=== PATIENT | female | born 1955 | race Caucasian/White ===

== ENCOUNTER 2017-02-08 16:04 | Outpatient (CLI) | payer BC ==
--- NOTE | 2017-02-10 18:15 | Mammography Report ---
DIGITAL BILATERAL SCREENING MAMMOGRAM: 02/08/2017 There are no comparisons. TECHNIQUE: Routine CC and MLO projections were obtained of the breasts. FINDINGS: Scattered fibroglandular tissue is present within the breasts. There are no dominant mass es, suspicious microcalcifications, or secondary signs of malignancy. ASSESSMENT: NO MAMMOGRAPHIC EVIDENCE OF MALIGNANCY. RECOMMENDATION: Screening mammography is recommended annually. BIRADS category 1 - negative. STANDARD QUALIFYING STATEMENTS 1. This examination was reviewed with the aid of Computed-Aided Detection (CAD). 2. A negative or benign imaging report should not delay biopsy if clinically suspicious findings are present. Consider surgical consultation if warranted. More than 5% of cancers are not identified b y imaging. 3. Dense breasts may obscure an underlying neoplasm. JOB #: [id number] EXT JOB #:[id number]
== END 2017-02-08 16:05 | disposition home or self-care (01) ==
LOC: DI.S 16:04
PROVIDERS: ATTEND Nurse Practitioner Family
DX: Z12.31 Encounter for screening mammogram for malignant neoplasm of breast (principal)
CPT/HCPCS: 77067

== ENCOUNTER 2017-04-28 09:47 | Outpatient (CLI) | payer BC ==
[2017-04-28 17:52] LABS: BASOPHILS # (AUTO) 0.1 10^3/uL (0.0-0.1); BASOPHILS % (AUTO) 0.8 %; EOSINOPHILS # (AUTO) 0.1 10^3/uL (0.0-0.7); EOSINOPHILS % (AUTO) 1.6 %; HGB - HEMOGLOBIN 15.1 g/dL (12.0-16.0); LYMPHOCYTES # (AUTO) 3.6 10^3/uL (1.5-3.5); LYMPHOCYTES % (AUTO) 39.6 %; MEAN CORPUSCULAR HGB CONC 32.8 g/dL (32.0-36.0); MEAN CORPUSCULAR VOLUME 94.4 fL (81.0-99.0); MONOCYTES # (AUTO) 0.7 10^3/uL (0.0-1.0); MONOCYTES % (AUTO) 7.7 %; NEUTROPHILS # (AUTO) 4.5 10^3/uL (1.5-6.6); NEUTROPHILS % (AUTO) 50.3 %; PLT - PLATELET COUNT 208 10^3/uL (130-450); RED BLOOD COUNT 4.87 10^6/uL (4.20-5.40); RED CELL DISTRIBUTION WIDTH 14.4 % (12.0-15.0)
[2017-04-28 18:27] LABS: ALBUMIN 3.9 g/dL (3.2-5.5); ALBUMIN/GLOBULIN RATIO 1.3 (1.0-2.2); ALKALINE PHOSPHATASE 58 IU/L (42-121); ALT ALANINE AMINOTRANSFERASE 16 IU/L (10-60); AST ASPARTATE AMINOTRANSFERASE 17 IU/L (10-42); BILIRUBIN,TOTAL 0.4 mg/dL (0.2-1.0); BUN - BLOOD UREA NITROGEN 21 mg/dL (6-20); CALCIUM 8.6 mg/dL (8.5-10.3); CARBON DIOXIDE - CO2 29 mmol/L (21-32); CHLORIDE 108 mmol/L (101-111); CHOL/HDL RATIO 4.1 (<4.4); CHOLESTEROL 270 mg/dL; CREATININE 0.8 mg/dL (0.4-1.0); GFR - MDRD 73 (>89); GLUCOSE 94 mg/dL (70-100); HDL CHOLESTEROL 66 mg/dL; LDL CHOLESTEROL,CALCULATED 183 mg/dL; LDL/HDL RATIO 2.8 (<4.4); SODIUM 138 mmol/L (135-145); TOTAL PROTEIN 6.8 g/dL (6.7-8.2); VLDL CHOLESTEROL 21 mg/dL
== END 2017-04-28 09:48 | disposition home or self-care (01) ==
LOC: LAB.F 09:47
PROVIDERS: ATTEND Nurse Practitioner Family
DX: F41.9 Anxiety disorder, unspecified (principal); R53.83 Other fatigue
CPT/HCPCS: 36415; 80053; 80061; 84443; 85025

== ENCOUNTER 2018-02-09 12:53 | Outpatient (CLI) | payer BC ==
--- NOTE | 2018-02-10 10:43 | Mammography Report ---
Reason: SCREENING MAMMO Procedure Date: 02/09/2018 Accession Number: [id number] / [id number] Procedure: RACHANA - Screening Mammo Dig Bilat CPT Code: FULL RESULT: EXAM: Screening Mammo Dig Bilat DATE: 02/09/2018 1:27 PM CLINICAL HISTORY: Routine screening TECHNIQUE: Bilateral CC and MLO views were obtained. COMPARISON: 02/08/2017 FINDINGS: There are scattered fibroglandular densities. No significant interval change. No suspicious masses, clustered microcalcifications, or regions of architectural distortion are identified. IMPRESSION: Negative examination RECOMMENDATION: Routine annual screening unless otherwise clinically indicated. BIRADS CATEGORY 1: Negative STANDARD QUALIFYING STATEMENTS: 1. This examination was reviewed with the aid of Computer-Aided Detection (CAD). 2. A negative or benign imaging report should not delay biopsy if clinically suspicious findings are present. Consider surgical consultation if warrented. More than 5% of cancers are not identified by imaging. 3. Dense breasts may obscure an underlying neoplasm.
== END 2018-02-09 12:54 | disposition home or self-care (01) ==
LOC: DI 12:53
DX: Z12.31 Encounter for screening mammogram for malignant neoplasm of breast (principal)
CPT/HCPCS: 77067

== ENCOUNTER 2019-02-10 11:22 | Outpatient (CLI) | payer BC ==
--- NOTE | 2019-02-10 12:25 | Mammography Report ---
Reason: SCREENING MAMMO Procedure Date: 02/10/2019 Accession Number: [id number] / [id number] Procedure: MGS - Screening Mammo Dig Bilat CPT Code: FULL RESULT: EXAM: Screening Mammo Dig Bilat DATE: 02/10/2019 11:44 AM CLINICAL HISTORY: Routine screening TECHNIQUE: (B) - Bilateral CC and MLO views were obtained. COMPARISON: 02/09/2018, 02/08/2017 PARENCHYMAL PATTERN: (A) - The breasts demonstrate scattered fibroglandular densities bilaterally. FINDINGS: No significant interval change. There are no suspicious masses, calcifications, or areas of distortion. IMPRESSION: Negative examination. BI-RADS category 1. RECOMMENDATION: (ANNUAL) - Recommend routine annual screening mammography. BI-RADS CATEGORY: (1) - Negative. STANDARD QUALIFYING STATEMENTS: 1. This examination was not reviewed with the aid of Computer-Aided Detection (CAD). 2. A negative or benign imaging report should not preclude biopsy if clinically suspicious findings are present. 3. Dense breasts may obscure an underlying neoplasm. 4. This examination was reviewed without the aid of 3D breast imaging (tomosynthesis).
== END 2019-02-10 11:23 | disposition home or self-care (01) ==
LOC: DI.S 11:22
DX: Z12.31 Encounter for screening mammogram for malignant neoplasm of breast (principal)
CPT/HCPCS: 77067

== ENCOUNTER 2021-02-09 14:49 | Outpatient (CLI) | payer MEDICARE, BC ==
--- NOTE | 2021-02-11 08:03 | Mammography Report ---
BILATERAL DIGITAL SCREENING MAMMOGRAM 3D/2D: 02/09/2021 CLINICAL: Routine screening. Comparison is made to exams dated: 02/10/2019 mammogram, 02/09/2018 mammogram, and 02/08/2017 mammog [facility]. There are scattered fibroglandular elements in both breasts. No significant masses, calcifications, or other findings are seen in either breast. There has been no significant interval change. IMPRESSION: NEGATIVE There is no mammographic evidence of malignancy. A 1 year screening mammogram is recommended. This exam was interpreted at Station ID: [id number]. NOTE: For mammograms, a report in lay terms will be sent to the patient. Approximately 15% of breast malignancies will not be visualized mammographically. In the management of a palpable breast mass, a negative mammogram must not discourage biopsy of a clinically suspicious lesion. Electronically Signed By: Sadie karimi/[email or web address]:02/10/2021 11:13:10 ACR BI-RADS Category 1: Negative 3341F PARENCHYMAL PATTERN: (A) - The breast(s) demonstrate(s) scattered fibroglandular densities. BI-RADS CATEGORY: (1) - 1 RECOMMENDATION: (ANNUAL) - Recommend routine annual screening mammography. [id number] 1 year screening LATERALITY: (B)
== END 2021-02-09 14:50 | disposition home or self-care (01) ==
LOC: DI.S 14:49
DX: Z12.31 Encounter for screening mammogram for malignant neoplasm of breast (principal)

== ENCOUNTER 2021-03-02 14:52 | Emergency (ER) | payer MEDICARE, OTHER ==
[2021-03-02 15:02] VITALS: BP 158/75
--- NOTE | 2021-03-02 15:58 | ED Physician Documentation ---
PD HPI HEENT - Stated complaint Stated Complaint: HEADACHE/EYE PX - Chief complaint Chief Complaint: Neuro - History obtained from History obtained from: Patient - Additional information Additional information: Patient comes emergency department chief complaint of pain in left maxillary area, as well as left side of nasal bridge and superior orbital rim forehead area for about the last 2 weeks. She states that she did have a brief episode of visual phenomena about 16 days ago which consisted of a brightly flashing Blind spot with various colors. At that time, she was able to consult with her tape control skin or spar mill operator, who felt that this was a migraine of ocular variance. Patient states that this only lasted about 20 minutes and that she was fine for the next few days until she got her Booster shot for Covid. She states that she developed an increasingly painful left eye ache that progressed into maxillary pain and pain in the nasal bridge as well as in the bone above her eye. She states that she did not have any visual changes, but has noticed that she has had an excessive amount of mucus drainage from the eye itself, as well as puffiness of her upper and lower eyelid. She states at night, she gets copious amounts of drainage from her left sinus, which she is able to blow out in the morning. She states the sinus only drains at night. She has had some chills but has not measured a temperature at home. No neurologic symptoms. She has not been ill in any other way. Patient does not use contacts or glasses. She has no history of glaucoma. Patient was sent here from urgent care for possible CT scan of the head. No other complaints at this time. Review of Systems Ten Systems: 10 systems reviewed and negative Constitutional: reports: Chills Eyes: reports: Discharge, Irritation Ears: reports: Reviewed and negative Nose: reports: Reviewed and negative Throat: reports: Reviewed and negative Cardiac: reports: Reviewed and negative Respiratory: reports: Reviewed and negative GI: reports: Reviewed and negative : reports: Reviewed and negative Skin: reports: Reviewed and negative Musculoskeletal: reports: Reviewed and negative Neurologic: reports: Headache Psychiatric: reports: Reviewed and negative Endocrine: reports: Reviewed and negative Immunocompromised: reports: Reviewed and negative PD PAST MEDICAL HISTORY - Past Medical History Cardiovascular: None Respiratory: Asthma Endocrine/Autoimmune: None GI: None ELECTRICAL APPLIANCE MECHANIC: None : Kidney stones HEENT: None Psych: Depression Musculoskeletal: Osteoarthritis, Chronic back pain Derm: Other - Past Surgical History Past Surgical History: Yes General: Appendectomy /ELECTRICAL APPLIANCE MECHANIC: Hysterectomy HEENT: Tonsil/Adenoidectomy - Present Medications Home Medications: Ambulatory Orders Medication Instructions Recorded Confirmed Aspirin [Aspir 81] 81 mg ORAL DAILY 12/28/14 12/28/14 Citalopram [CeleXA] 20 mg ORAL DAILY 12/28/14 12/28/14 Folic Acid 0 mg ORAL DAILY 12/28/14 12/28/14 Meloxicam 0 mg ORAL DAILY 12/28/14 12/28/14 raNITIdine HCl [Zantac] 0 mg ORAL DAILY 12/28/14 12/28/14 Doxycycline Monohydrate 100 mg PO BID #14 tab 03/02/21 Gentamicin 0.3% Ophth Drops 1 drops OPTH BID #5 ml 03/02/21 [Garamycin] - Allergies Allergies/Adverse Reactions: Allergies Allergy/AdvReac Type Severity Reaction Status Date / Time morphine Allergy Itching Verified 03/02/21 15:03 Penicillins Allergy Anaphylaxis Verified 03/02/21 15:03 Tetanus Vaccines and Toxoid Allergy Edema Verified 03/02/21 15:03 [Tetanus Vaccines & Toxoid] - Social History Does the pt smoke?: No Smoking Status: Never smoker Does the pt drink ETOH?: Yes Does the pt have substance abuse?: No - Immunizations Immunizations are current?: No PD ED PE NORMAL - Vitals Vital signs reviewed: Yes - General General: Alert and oriented X 3, No acute distress, Well developed/nourished - HEENT HEENT: Atraumatic, PERRL, EOMI, Moist mucous membranes, Other (Mild left conjunctival injection. No obvious drainage. Mild edema of left upper and lower eyelids. Moderate tenderness over left maxillary sinus extending up along the patient's left nasal bridge onto the superior orbital rim and a couple of centimeters superior to that over the bone. No edema o) - Neck Neck: Supple, no meningeal sign, No bony TTP - Cardiac Cardiac: RRR, No murmur, Strong equal pulses - Respiratory Respiratory: No respiratory distress, Clear bilaterally - Abdomen Abdomen: Soft, Non tender, Non distended - Derm Derm: Normal color, Warm and dry, No rash - Extremities Extremities: No deformity - Neuro Neuro: Alert and oriented X 3, dye and chemical coordinator 2-12 intact, Normal speech - Psych Psych: Normal mood, Normal affect Results - Vitals Vitals: Vital Signs - 24 hr 03/02/21 14:56 Temperature 36.5 C Heart Rate 83 Respiratory 16 Rate Blood Pressure 158/75 H O2 Saturation 97 Oxygen O2 Source Room air PD MEDICAL DECISION MAKING - ED course Complexity details: considered differential, d/w patient ED course: I discussed with the patient that I do not find evidence of a need for CT scan. She has had the pain in her left sinuses and I for the last 12 days without any sort of progression of neurologic symptoms or infectious symptoms otherwise. The patient does not have any visual compromise or severe injection to indicate a prior high probability of glaucoma. I feel it is unlikely she has an intracranial process as an explanation for her symptoms. Patient most likely has a rhinosinusitis, with some degree of conjunctivitis. We will treat her for this, and antibiotic drops have been prescribed. The patient is advised that if she continues to have the symptoms for more than another couple weeks, she should follow-up in primary care to discuss ENT referral. Discussed the usual indications for return. Departure - Departure Disposition: 01 Home, Self Care Clinical Impression: Acute rhinosinusitis Condition: Stable Instructions: ED Sinusitis Abx Tx Follow-Up: Nickolas Garcia MD [Credentialed Staff Provider] - Prescriptions: Doxycycline Monohydrate 100 mg PO BID #14 tab Gentamicin 0.3% Ophth Drops [Garamycin] 1 drops OPTH BID #5 ml Comments: Your prescriptions have been electronically transmitted to [facility] in [place].
== END 2021-03-02 16:07 | disposition home or self-care (01) ==
LOC: ED 14:52
DX: J01.90 Acute sinusitis, unspecified (principal); H10.9 Unspecified conjunctivitis
CPT/HCPCS: 99282; 99284

== ENCOUNTER 2021-04-05 12:06 | Emergency (ER) | payer MEDICARE, OTHER ==
--- NOTE | 2021-04-05 12:46 | ED Physician Documentation ---
History of Present Illness - Stated complaint Stated Complaint: DIZZINESS - Chief complaint Chief Complaint: Neuro - Additonal information Additional information: 65-year-old female is referred to the emergency department from a local walk-in clinic for evaluation of progressive vertigo and dizziness that began on Wednesday, 01 April. She reports that initially when she woke up in bed she opened her eyes and found the room spinning. This has been a constant complaint especially when bending over over the last week. However today she began to feel off balance and stated that she is walking like a drunk person though she has had no alcohol. 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 She reports that subsequent imaging echocardiogram and EKG did not reveal an obvious reason or cause and she was discharged from the hospital. She is not anticoagulated, takes no aspirin or Plavix. She states that 9 years ago they had concerns that she may have been having a vertebral artery dissection or vertebral artery stroke. pt takes no asa or plavix. not anticoagulated Meds: none Review of Systems Constitutional: denies: Fever, Chills Eyes: reports: Other (Denies double vision). denies: Loss of vision, Photophobia Ears: denies: Loss of hearing, Ear pain, Drainage/discharge, Tinnitus/ringing Nose: reports: Reviewed and negative Throat: reports: Reviewed and negative Cardiac: reports: Reviewed and negative Respiratory: reports: Reviewed and negative GI: reports: Nausea. denies: Vomiting : denies: Dysuria, Frequency, Hesitancy Skin: denies: Rash, Lesions Musculoskeletal: reports: Neck pain. denies: Back pain Neurologic: reports: Other (Off balance and dizzy). denies: Generalized weaknes s, Focal weakness, Numbness, Difficulty speaking, Near syncope, Headache, Head injury PD PAST MEDICAL HISTORY - Past Medical History Cardiovascular: None Respiratory: Asthma Neuro: Migraines Endocrine/Autoimmune: None GI: None TELECOMMUNICATIONS ADMINISTRATOR: None : Kidney stones HEENT: None Psych: Depression Musculoskeletal: Osteoarthritis, Chronic back pain Derm: Other - Past Surgical History Past Surgical History: Yes General: Appendectomy /TELECOMMUNICATIONS ADMINISTRATOR: Hysterectomy HEENT: Tonsil/Adenoidectomy - Present Medications Home Medications: Ambulatory Orders Medication Instructions Recorded Confirmed Aspirin [Aspir 81] 81 mg ORAL DAILY 12/28/14 12/28/14 Citalopram [CeleXA] 20 mg ORAL DAILY 12/28/14 12/28/14 Folic Acid 0 mg ORAL DAILY 12/28/14 12/28/14 Meloxicam 0 mg ORAL DAILY 12/28/14 12/28/14 raNITIdine HCl [Zantac] 0 mg ORAL DAILY 12/28/14 12/28/14 Doxycycline Monohydrate 100 mg PO BID #14 tab 03/02/21 Gentamicin 0.3% Ophth Drops 1 drops OPTH BID #5 ml 03/02/21 [Garamycin] - Allergies Allergies/Adverse Reactions: Allergies Allergy/AdvReac Type Severity Reaction Status Date / Time morphine Allergy Itching Verified 04/05/21 12:16 Penicillins Allergy Anaphylaxis Verified 04/05/21 12:16 Tetanus Vaccines and Toxoid Allergy Edema Verified 04/05/21 12:16 [Tetanus Vaccines & Toxoid] - Social History Does the pt smoke?: No Smoking Status: Never smoker Does the pt drink ETOH?: Yes Does the pt have substance abuse?: No - Immunizations Immunizations are current?: No PD ED PE EXPANDED - General General: Alert, No acute distress, Well developed/nourished - Cardiac Cardiac: Regular Rate, Radial strong equal, Pedal strong equal, Cap refill < 2 sec. No: Murmur Present - Respiratory Respiratory: Clear to ausultation zachery. No: Distress, Labored - Abdomen Abdomen: Normal Bowel sounds. No: Tender to palpation - Derm Derm: Normal color, Warm and dry. No: Rash - Extremities Extremities: Normal. No: Deformity, Tenderness - Neuro Neuro: Alert and Oriented X 3, CNII-XII intact, Normal finger nose, Normal speech, Other (HINTS: + loss of fixation of left eye HITS; No nystagmus, Test of skew negative). No: Normal gait (Pt appears to skew to the right somwehat when walking. Can not perform heel/toe. Feels very dizzy and off balance with ambulation. Negative Romberg) Results - Vitals Vitals: Vital Signs - 24 hr 04/05/21 04/05/21 04/05/21 12:13 12:26 12:30 Temperature 36.8 C Heart Rate 86 71 75 Respiratory 18 17 18 Rate Blood Pressure 177/93 H 181/89 H 172/97 H O2 Saturation 99 99 100 04/05/21 04/05/21 14:00 16:00 Temperature Heart Rate 78 74 Respiratory 18 16 Rate Blood Pressure 164/82 H 158/78 H O2 Saturation 96 96 Oxygen O2 Source Room air - EKG (time done) 1250 Rate: Rate (enter#) (73) Rhythm: NSR [place]: Normal Intervals: Normal [place] QRS: Normal Ischemia: Normal ST segments Compare to prior EKG: Old EKG unavailable Computer interpretation: Agree with computer - Labs Labs: Laboratory Tests 04/05/21 04/05/21 04/05/21 12:41 12:41 12:41 WBC 11.9 H RBC 5.30 Hgb 16.6 H Hct 49.8 H MCV 94.0 MCH 31.3 H MCHC 33.3 RDW 13.7 Plt Count 238 MPV 10.9 H Neut # (Auto) 8.3 H Lymph # (Auto) 2.8 Casey # (Auto) 0.8 Eos # (Auto) 0.0 Baso # (Auto) 0.1 Absolute Nucleated RBC 0.00 Nucleated RBC % 0.0 PT INR Sodium 139 Potassium 4.0 Chloride 103 Carbon Dioxide 24 Anion Gap 12.0 BUN 15 Creatinine 0.8 Estimated GFR (MDRD) 72 L Glucose 103 H Calcium 9.5 Total Bilirubin 1.1 H AST 18 ALT 21 Alkaline Phosphatase 74 Troponin I High Sens 3.9 Total Protein 7.7 Albumin 4.2 Globulin 3.5 Albumin/Globulin Ratio 1.2 Lipase 30 TSH Urine Color Urine Clarity Urine pH Ur Specific [place] Urine Protein Urine Glucose (UA) Urine Ketones Urine Occult Blood Urine Nitrite Urine Bilirubin Urine Urobilinogen Ur Leukocyte Esterase Urine RBC Urine WBC Ur Squamous Epith Cells Urine Bacteria Ur Microscopic Review Urine Culture Comments 04/05/21 04/05/21 04/05/21 12:41 12:50 14:20 WBC RBC Hgb Hct MCV MCH MCHC RDW Plt Count MPV Neut # (Auto) Lymph # (Auto) Casey # (Auto) Eos # (Auto) Baso # (Auto) Absolute Nucleated RBC Nucleated RBC % PT 11.5 INR 1.0 Sodium Potassium Chloride Carbon Dioxide Anion Gap BUN Creatinine Estimated GFR (MDRD) Glucose Calcium Total Bilirubin AST ALT Alkaline Phosphatase Troponin I High Sens Total Protein Albumin Globulin Albumin/Globulin Ratio Lipase TSH 1.30 Urine Color YELLOW Urine Clarity HAZY Urine pH 5.0 Ur Specific [place] 1.010 Urine Protein NEGATIVE Urine Glucose (UA) NEGATIVE Urine Ketones NEGATIVE Urine Occult Blood SMALL H Urine Nitrite NEGATIVE Urine Bilirubin NEGATIVE Urine Urobilinogen 0.2 (NORMAL) Ur Leukocyte Esterase NEGATIVE Urine RBC 0-5 Urine WBC 0-3 Ur Squamous Epith Cells NONE SEEN Urine Bacteria None Seen Ur Microscopic Review INDICATED Urine Culture Comments NOT INDICATED - Rads (name of study) cxr Radiology: Final report received (no actue cardiopulmonary process) CTA head Radiology: Final report received (Atherosclerotic calcifications of the intracranial internal carotid arteries. otherwise normal CTA of the head) CTA neck Radiology: Final report received (Left vertebral artery has a severe stenosis at the origin but is patent throughout the remainder of its course. Atherosclerotic calcifications of the carotid bulbs with no significant stenos is. Tortuosity of the cervical portions of the ICA. Otherwise normal CTA of the carotid and vertebral shai) PD MEDICAL DECISION MAKING - ED course Complexity details: reviewed results, re-evaluated patient, considered differential, d/w internal control consultant (Svetlana (neurologist at [facility])) ED course: 65-year-old female presents the emergency department for evaluation of dizziness and feeling off balance. Symptoms began on 01 April and have seem to be mostly positional especially when laying supine or bending over. However this morning she felt like she was walking drunk. On exam her hints exam did show a corrective saccade with head impulse/thrust test. Her test of skew And nystagmography test were negative. This would indicate that the patient may have peripheral vertigo. However she indicated to this provider that in 2011 she had concerns That she could have had a stroke in 2011 though the work-up completed at the [facility] in [place] was negative. Today on presentation she had no focal neuro deficits and very fluid speech. Her Romberg was negative. Screening labs do not show any acute worrisome abnormalities. CT angio of the head was unremarkable. However the CT angio of the neck showed vertebral artery stenosis at the origin of the vertebral artery. Given the concern of worsening vertigo I did discuss this case with Dr. Alberto who is a neurologist on-call with [facility]. He reports to this provider that vertebral artery stenosis is not uncommon especially in individuals of this age. If patient is able to adequately ambulate he feels that she is stable for discharge home but should be referred to neurology as an outpatient. Reassuringly her right vertebral artery is without significant findings. She should have an outpatient MRI though it does not need to be done emergently within the next few days. He does recommend starting the patient on aspirin if she is not already taking it. Therefore she was loaded with 325 mg of aspirin here and will be advised to take 81 mg daily. I have discussed with the patient her CT imaging findings as well as my discussion with the neurologist. She will attempt to follow-up with her primary care doctor to obtain outpatient MRI. I did observe her ambulating in the hallway and she was relatively safe though she does prefer to hold on to someone therefore she will be dispensed a walker. We discussed that if her symptoms worsen she must return to an ER immediately. Departure - Departure Disposition: Home, Self Care Clinical Impression: Vertebral artery stenosis Qualifiers: Laterality: left Qualified Code(s): I65.02 - Occlusion and stenosis of left vertebral artery Condition: Stable Record reviewed to determine appropriate education?: Yes Instructions: ED Fall Dizziness Weakn Balance Follow-Up: Cj Hills MD [Provider Admit Priv/Credential] - Comments: Jordana and you were seen in the emergency department today because you have had worsening dizziness that began on Wednesday. Your screening labs today did not show any worrisome abnormalities. We did do CT angiogram of your head that was unremarkable for age. However the angiogram of your neck did show stenosis or narrowing at the origin of your left vertebral artery. This was discussed with the on-call neurologist at [facility]. He does recommend that you have an MRI as an outpatient. He would also recommend that you start taking a daily aspirin since you are not already. We are dispensing you a walker to help you stay stable when walking. If however you find that you are having worsening dizziness, any vomiting or falls then you are to return to an emergency department immediately. It is important that you see your primary care provider in follow-up as soon as possible. I have given you the name of Dr. Hernandez who is scheduled to see emergency department patients in follow-up next week. Discharge Date/Time: 04/05/21 16:30
[2021-04-05 13:01] LABS: BASOPHILS # (AUTO) 0.1 10^3/uL (0.0-0.1); BASOPHILS % (AUTO) 0.5 %; EOSINOPHILS % (AUTO) 0.2 %; HCT - HEMATOCRIT 49.8 % (37.0-47.0); HGB - HEMOGLOBIN 16.6 g/dL (12.0-16.0); LYMPHOCYTES # (AUTO) 2.8 10^3/uL (1.5-3.5); LYMPHOCYTES % (AUTO) 23.4 %; MEAN CORPUSCULAR HEMOGLOBIN 31.3 pg (27.0-31.0); MEAN CORPUSCULAR HGB CONC 33.3 g/dL (32.0-36.0); MEAN PLATELET VOLUME 10.9 fL (7.9-10.8); MONOCYTES # (AUTO) 0.8 10^3/uL (0.0-1.0); MONOCYTES % (AUTO) 6.3 %; NEUTROPHILS # (AUTO) 8.3 10^3/uL (1.5-6.6); NEUTROPHILS % (AUTO) 69.2 %; PLT - PLATELET COUNT 238 10^3/uL (130-450); RED CELL DISTRIBUTION WIDTH 13.7 % (12.0-15.0); WHITE BLOOD COUNT 11.9 x10^3/uL (4.8-10.8)
[2021-04-05 13:05] LABS: PT - PROTHROMBIN TIME 11.5 secs (9.9-12.6)
[2021-04-05 13:09] LABS: ALBUMIN 4.2 g/dL (3.2-5.5); ALBUMIN/GLOBULIN RATIO 1.2 (1.0-2.2); BILIRUBIN,TOTAL 1.1 mg/dL (0.2-1.0); CALCIUM 9.5 mg/dL (8.5-10.3); CREATININE 0.8 mg/dL (0.4-1.0); TOTAL PROTEIN 7.7 g/dL (6.7-8.2)
[2021-04-05] MEDS ORDERED: SODIUM CHLORIDE 0.9% 1,000 ML IV STA (13:21)
[2021-04-05] MEDS ORDERED: IOPAMIDOL-300 100 ML VIAL ONE (13:35)
[2021-04-05] MEDS ORDERED: IOPAMIDOL-300 100 ML VIAL IVP ONE (14:00)
[2021-04-05] MEDS ORDERED: MECLIZINE 12.5 MG TABLET PO STA (14:05)
--- NOTE | 2021-04-05 14:18 | XRAY Report ---
PROCEDURE: Chest 1 View X-Ray INDICATIONS: chest pain TECHNIQUE: One view of the chest was acquired. COMPARISON: None FINDINGS: Surgical changes and devices: None. Lungs and pleura: No pleural effusions or pneumothorax. Lungs are clear. Mediastinum: Mediastinal contours appear normal. Heart size is normal. Bones and chest wall: No suspicious bony lesions. Overlying soft tissues appear unremarkable. IMPRESSION: No acute abnormality of the chest. Reviewed by: Jean-Pierre Mcdaniel on 04/05/2021 1:16 PM [facility] Approved by: Jean-Pierre Mcdaniel on 04/05/2021 1:16 PM [facility] Station ID: [id number]
--- NOTE | 2021-04-05 14:36 | CT Report ---
PROCEDURE: ANGIO HEAD W/WO INDICATIONS: vertigo, off balance CONTRAST: IV CONTRAST: Isovue 300 ml: 80 PO CONTRAST: *NO PO CONTRAST TECHNIQUE: Precontrast 4.5 mm thick angled axial sections acquired from the foramen magnum to the vertex. Afte r the administration of intravenous contrast, 1 mm thick sections acquired through the [place] is. Postcontrast 4.5 mm thick sections then re-acquired from the foramen magnum to the vertex. 3-di mensional zclmdwi-nkmlpinxe-hewwhbgvqw (MIP) and/or volume rendering reformats were acquired of the c entral intracranial vasculature. For radiation dose reduction, the following was used: automated ex posure control, adjustment of mA and/or kV according to patient size. COMPARISON: None FINDINGS: Image quality: Excellent. Anterior circulation: The cavernous segments of the intracranial internal carotid arteries demonstrat e atherosclerotic calcifications with no significant stenosis. The flow within the paired anterior ce rebral arteries is normal and symmetric. The flow within the middle cerebral arteries is normal and symmetric. The anterior communicating artery is seen. No aneurysms are seen. Posterior circulation: Visualized portions of the vertebral arteries demonstrate normal caliber, and join to form a normal appearing basilar artery. Flow within the posterior cerebral arteries is norm al and symmetric. No aneurysms are seen. CSF spaces: Ventricles are normal in size and shape. Basal cisterns are patent. No extra-axial flu id collections. Brain: No midline shift. No intracranial bleeds or masses. Maldonado-white matter interface appears int act. Skull and face: Calvarium and facial bones appear intact, without suspicious lesions. Sinuses: Visualized sinuses and mastoids are clear. IMPRESSION: 1. Atherosclerotic calcifications of the intracranial internal carotid arteries.. 2. Otherwise normal CTA of the head. Reviewed by: Jean-Pierre Mcdaniel on 04/05/2021 1:35 PM [place] Approved by: Jean-Pierre Mcdaniel on 04/05/2021 1:35 PM [place] Station ID: [id number]
[2021-04-05 14:45] LABS: BILIRUBIN,URINE NEGATIVE (NEGATIVE); GLUCOSE, URINE (UA) NEGATIVE (NEGATIVE); KETONES,URINE (UA) NEGATIVE (NEGATIVE); LEUKOCYTE ESTERASE, URINE NEGATIVE (NEGATIVE); NITRITE,URINE NEGATIVE (NEGATIVE); OCCULT BLOOD,URINE SMALL (NEGATIVE); PROTEIN,URINE NEGATIVE (NEGATIVE); UROBILINOGEN,URINE 0.2 (NORMAL) E.U./dL (NORMAL)
[2021-04-05 14:49] LABS: CLARITY,URINE HAZY (CLEAR)
--- NOTE | 2021-04-05 14:49 | CT Report ---
PROCEDURE: ANGIO NECK W INDICATIONS: vertigo; off balance CONTRAST: IV CONTRAST: Isovue 300 ml: 80 PO CONTRAST: *NO PO CONTRAST TECHNIQUE: After the administration of intravenous contrast, 1.5 mm axial sections acquired from the aortic arch to the [place]. Coronal 3-D maximum intensity projection (MIP) and/or volume rendering ref ormats were then performed. For radiation dose reduction, the following was used: automated exposur e control, adjustment of mA and/or kV according to patient size. COMPARISON: None. FINDINGS: Image quality: Excellent. Carotid system: The great vessels demonstrate a conventional anatomy as they arise from the aortic a [facility]. The origins of the common carotid arteries appear patent. The common carotid arteries demonstr ate normal calibers and courses. The bifurcation regions have atherosclerotic calcifications with no significant stenosis. The internal carotid arteries demonstrate normal caliber and course. Posterior circulation: The right vertebral artery is patent throughout its course. The left vertebral artery has a severe stenosis at the origin but is patent throughout the remainder of its course. The vertebral arteries join to form a normal appearing basilar artery. Soft tissues: Visualized neck soft tissues demonstrate no suspicious abnormalities. The thyroid is normal in size and there are no incidental findings. The left maxillary sinus has a mucosal retention cyst posteriorly. Bones: No suspicious bony lesions. Visualized cervical spine appears normally aligned. IMPRESSION: 1. Focal stenosis of the origin of the left vertebral artery. 2. Atherosclerotic calcifications of the carotid bulbs with no significant stenosis. 3. Tortuosity of the cervical portions of the ICAs. 4. Otherwise normal CTA of the carotid and vertebral arteries with no dissection or aneurysm. The estimate of stenosis included in the report of the imaging study was calculated using the NASCET method Reviewed by: Jean-Pierre Mcdaniel on 04/05/2021 1:47 PM [facility] Approved by: Jean-Pierre Mcdaniel on 04/05/2021 1:47 PM [facility] Station ID: [id number]
[2021-04-05 15:10] LABS: BACTERIA,URINE None Seen /HPF (None Seen); RBC,URINE 0-5 /HPF (0-5); SQUAMOUS EPITHELIAL CELL,UR NONE SEEN (<= Few); WBC,URINE 0-3 /HPF (0-5)
[2021-04-05] MEDS ORDERED: ASPIRIN CHEW 81 MG TABLET PO STA (15:44)
[2021-04-05 16:06] VITALS: BP 158/78
== END 2021-04-05 16:30 | disposition home or self-care (01) ==
LOC: ED 12:06
DX: I65.02 Occlusion and stenosis of left vertebral artery (principal); Z86.73 Personal history of transient ischemic attack (TIA), and cerebral infarction without residual deficits; Z79.82 Long term (current) use of aspirin
CPT/HCPCS: 36415; 70496; 70498; 71045; 80053; 81001; 83690; 84443; 84484; 85025; 85610; 93005; 99283; 99284; A9270; Q9967; 81003; 87086

== ENCOUNTER 2021-04-16 12:40 | Outpatient (CLI) | payer MEDICARE, OTHER ==
[2021-04-16] MEDS ORDERED: GADOBUTROL 10 MMOL/10 ML VIAL ONE (12:58)
[2021-04-16] MEDS ORDERED: GADOBUTROL 10 MMOL/10 ML VIAL IVP ONE (15:13)
--- NOTE | 2021-04-16 16:23 | MRI Report ---
PROCEDURE: Brain W/O INDICATIONS: LEFT VERTEBRAL ARTERY STENOSIS TECHNIQUE: Noncontrast axial T1 spin echo, axial T2 fast spin echo, sagittal and axial FLAIR, coronal T2 fast sp in echo, axial gradient echo, axial diffusion and ADC through the brain. COMPARISON: CT angiogram head 04/05/2021.. FINDINGS: Image quality: Excellent. CSF Spaces: Basal cisterns are patent. No extra-axial fluid collections. Ventricles are normal in size and shape. Brain: No intracranial masses or hemorrhage. There is mild, diffuse volume loss. There are minimal p eriventricular and subcortical white matter chronic microvascular ischemic changes. Maldonado/white matter interface is normal. Brainstem appears normal. Diffusion-weighted images demonstrate no acute isch emic insult. No chronic ischemic insults. Normal intravascular flow voids are present. Skull and face: Calvarium has normal marrow signal. Orbits appear normal. Sinuses: Polyp versus mucous retention cyst noted in the left maxillary sinus. Mastoids are clear. IMPRESSION: 1. No acute intracranial disease process. 2. No areas of acute or chronic infarction. 3. No abnormal and coronal mass or mass effect. 4. Mild, diffuse cerebral volume loss. 5. Minimal periventricular and subcortical white matter chronic ischemic change. Reviewed by: Jennifer Benjamin MD, PhD on 04/16/2021 4:22 PM PST Approved by: Jennifer Benjamin MD, PhD on 04/16/2021 4:22 PM PST Station ID: [id number]
--- NOTE | 2021-04-16 16:27 | MRI Report ---
PROCEDURE: Angio Brain W/O (MRA) INDICATIONS: LEFT VERTEBRAL ARTERY STENOSIS TECHNIQUE: Noncontrast axial 3-D gdlb-st-[id number] MR angiogram, with 3-dimensional maximum intensity projection (M IP) reformats of the internal carotid arteries and posterior circulation then performed. COMPARISON: CT angiogram head process .. FINDINGS: Image quality: Excellent. Anterior circulation: Intracranial internal carotid arteries demonstrate normal intraluminal flow si gnal. Mild atherosclerotic irregularity noted in the cavernous and clinoid segments of the internal c arotid arteries which causes mild narrowing of the vessels. The flow within the paired anterior cereb ral arteries is normal and symmetric. The flow within the middle cerebral arteries is normal and sym metric. The anterior communicating artery is seen. No stenoses, occlusions, or aneurysms. Posterior circulation: Visualized portions of the vertebral arteries demonstrate normal caliber, and join to form a normal appearing basilar artery. The flow within the posterior cerebral arteries is normal and symmetric. No stenoses, occlusions, or aneurysms. IMPRESSION: 1. No large vessel occlusion, hemodynamically significant*stenosis, vascular dissection or aneurysm. 2. Mild atherosclerotic disease involving the cavernous and clinoid segments of the internal carotid arteries bilaterally. Reviewed by: Jennifer Benjamin MD, PhD on 04/16/2021 4:26 PM PST Approved by: Jennifer Benjamin MD, PhD on 04/16/2021 4:26 PM PST Station ID: [id number]
--- NOTE | 2021-04-16 16:32 | MRI Report ---
PROCEDURE: Angio Neck W/WO (MRA) INDICATIONS: LEFT VERTEBRAL ARTERY STENOSIS CONTRAST: IV CONTRAST: Gadavist ml: 7.9 TECHNIQUE: Axial and sagittal balanced GE through the neck. Coronal dynamic MRA after the administration of con trast in the arterial and venous phases, with rotating 3-dimensional maximum intensity projection (VT P) reformats constructed from subtraction images. COMPARISON: CT angiogram neck 04/05/2021.. FINDINGS: Image quality: Excellent. Carotid system: Great vessels demonstrate a conventional anatomy as they arise from the aortic arch. The origins of the common carotid arteries appear normal. The calibers and courses of the common c arotid arteries are likewise normal. Atherosclerotic plaque noted in the origins of the right and lef t internal carotid arteries which causes less than 50% stenosis of the vessels. The bilateral interna l carotid arteries follow medial course projecting into the retropharyngeal space. Right internal car otid artery pharyngeal loop incidentally noted. Posterior circulation: Origin of the right vertebral artery is fully patent. Atherosclerotic irregula rity noted in the origin of the left vertebral artery which causes high-grade, short segment stenosis . There is flow in the left vertebral artery distal to the high-grade origin stenosis. Patient is rig ht vertebral artery dominant. The more superior portions of the vertebral arteries demonstrate normal course and caliber. Vertebral arteries join to form a normal appearing basilar artery. Miscellaneous: Subclavian arteries are patent throughout. Pre-contrast images through the neck demo nstrate no soft tissue abnormalities. IMPRESSION: 1. Less than 50% stenosis of the origins of the internal carotid arteries bilaterally. 2. High-grade, short segment stenosis of the origin of the left vertebral artery. 3. Right vertebral artery is fully patent. Patient is right vertebral artery dominant. Reviewed by: Jennifer Benjamin MD, PhD on 04/16/2021 4:31 PM PST Approved by: Jennifer Benjamin MD, PhD on 04/16/2021 4:31 PM PST Station ID: [id number]
== END 2021-04-16 12:41 | disposition home or self-care (01) ==
LOC: DI 12:40
PROVIDERS: ATTEND Internal Medicine
DX: I65.02 Occlusion and stenosis of left vertebral artery (principal); I67.82 Cerebral ischemia; I65.23 Occlusion and stenosis of bilateral carotid arteries; R42 Dizziness and giddiness
CPT/HCPCS: 70544; 70549; 70551; A9585

== ENCOUNTER 2021-06-06 17:36 | Outpatient (CLI) | payer MEDICARE, OTHER ==
--- NOTE | 2021-06-06 20:43 | XRAY Report ---
PROCEDURE: Hip w/Pelvis 2-3V LT INDICATIONS: HIP PAIN LEFT TECHNIQUE: AP pelvis with AP and lateral view of the left hip. COMPARISON: None. FINDINGS: Bones: No fractures or dislocations. Pelvic ring appears intact. No suspicious bony lesions. Degen erative changes are seen in spine. Soft tissues: The visualized bowel gas pattern is normal. No suspicious soft tissue calcifications. IMPRESSION: No acute osseous abnormality. Degenerative changes are noted in the spine. If symptoms p ersist or there is continued clinical concern, further evaluation with MRI or CT may be helpful. Reviewed by: Prince Camargo MD on 06/06/2021 8:42 PM PST Approved by: Prince Camargo MD on 06/06/2021 8:42 PM PST Station ID: [id number]
== END 2021-06-06 17:37 | disposition home or self-care (01) ==
LOC: DI.S 17:36
PROVIDERS: ATTEND Registered Nurse
DX: M25.552 Pain in left hip (principal); M47.9 Spondylosis, unspecified

== ENCOUNTER 2021-06-20 08:39 | Outpatient (CLI) | payer MEDICARE, OTHER ==
[2021-06-20 15:18] LABS: BASOPHILS # (AUTO) 0.1 10^3/uL (0.0-0.1); BASOPHILS % (AUTO) 0.9 %; EOSINOPHILS # (AUTO) 0.2 10^3/uL (0.0-0.7); EOSINOPHILS % (AUTO) 2.2 %; HCT - HEMATOCRIT 46.9 % (37.0-47.0); HGB - HEMOGLOBIN 15.1 g/dL (12.0-16.0); LYMPHOCYTES # (AUTO) 3.2 10^3/uL (1.5-3.5); LYMPHOCYTES % (AUTO) 32.7 %; MEAN CORPUSCULAR HEMOGLOBIN 30.6 pg (27.0-31.0); MEAN CORPUSCULAR HGB CONC 32.2 g/dL (32.0-36.0); MEAN CORPUSCULAR VOLUME 95.1 fL (81.0-99.0); MEAN PLATELET VOLUME 12.1 fL (7.9-10.8); MONOCYTES # (AUTO) 0.9 10^3/uL (0.0-1.0); MONOCYTES % (AUTO) 9.4 %; NEUTROPHILS # (AUTO) 5.3 10^3/uL (1.5-6.6); NEUTROPHILS % (AUTO) 54.3 %; PLT - PLATELET COUNT 225 10^3/uL (130-450); RED BLOOD COUNT 4.93 10^6/uL (4.20-5.40); RED CELL DISTRIBUTION WIDTH 14.3 % (12.0-15.0); WHITE BLOOD COUNT 9.7 x10^3/uL (4.8-10.8)
[2021-06-20 16:31] LABS: ALBUMIN 3.6 g/dL (3.2-5.5); ALBUMIN/GLOBULIN RATIO 1.3 (1.0-2.2); ALKALINE PHOSPHATASE 59 IU/L (42-121); ALT ALANINE AMINOTRANSFERASE 20 IU/L (10-60); AST ASPARTATE AMINOTRANSFERASE 18 IU/L (10-42); BILIRUBIN,TOTAL 0.7 mg/dL (0.2-1.0); BUN - BLOOD UREA NITROGEN 13 mg/dL (6-20); CALCIUM 8.9 mg/dL (8.5-10.3); CARBON DIOXIDE - CO2 25 mmol/L (21-32); CHLORIDE 104 mmol/L (101-111); CHOL/HDL RATIO 4.4 (<4.4); CHOLESTEROL 253 mg/dL; CREATININE 0.8 mg/dL (0.4-1.0); GFR - MDRD 72 (>89); GLUCOSE 87 mg/dL (70-100); HDL CHOLESTEROL 57 mg/dL; LDL CHOLESTEROL,CALCULATED 168 mg/dL; LDL/HDL RATIO 2.9 (<4.4); POTASSIUM 4.3 mmol/L (3.5-5.0); SODIUM 138 mmol/L (135-145); TOTAL PROTEIN 6.3 g/dL (6.7-8.2); TRIGLYCERIDES 141 mg/dL; VLDL CHOLESTEROL 28 mg/dL
[2021-06-20 17:16] LABS: THYROID STIMULATING HORMONE 1.92 uIU/mL (0.34-5.60)
== END 2021-06-20 08:40 | disposition home or self-care (01) ==
LOC: LAB.S 08:39
PROVIDERS: ATTEND Registered Nurse
DX: Z13.228 Encounter for screening for other metabolic disorders (principal); E78.5 Hyperlipidemia, unspecified; Z13.29 Encounter for screening for other suspected endocrine disorder; Z13.0 Encounter for screening for diseases of the blood and blood-forming organs and certain disorders involving the immune mechanism
CPT/HCPCS: 36415; 80053; 80061; 83721; 84443; 85025

== ENCOUNTER 2023-01-26 13:59 | Outpatient (CLI) | payer MEDICARE, OTHER ==
--- NOTE | 2023-01-27 10:43 | Mammography Report ---
BILATERAL DIGITAL SCREENING MAMMOGRAM 3D/2D: 01/26/2023 CLINICAL: Routine screening. Comparison is made to exams dated: 02/09/2021 mammogram, 02/10/2019 mammogram, 02/09/2018 mammogram, and 02/08/2017 mammogram - [facility]. There are scattered areas of fibroglandular density in both breasts (category b / 25%-50% glandular t issue). No significant masses, calcifications, or other findings are seen in either breast. IMPRESSION: NEGATIVE There is no mammographic evidence of malignancy. A 1 year screening mammogram is recommended. Based on the Tyrer Cuzick model (a risk assessment model) the patients lifetime risk is 3.8% and her 10 year risk is 2.0%. According to the ACR, ACS, and NCCN guidelines, an annual breast MRI exam chirag g with mammogram is recommended if the patients lifetime risk is 20% or greater. This exam was interpreted at Station ID: [id number]. NOTE: For mammograms, a report in lay terms will be sent to the patient. Approximately 15% of breast malignancies will not be visualized mammographically. In the management of a palpable breast mass, a negative mammogram must not discourage biopsy of a clinically suspicious lesion. Electronically Signed By: Krupa martinez/erickson:01/26/2023 18:16:32 letter sent: No_Letter ACR BI-RADS Category 1: Negative 3341F PARENCHYMAL PATTERN: (A) - The breast(s) demonstrate(s) scattered fibroglandular densities. BI-RADS CATEGORY: (1) - 1 Mammogram [id number] 1 year screening LATERALITY: (B)
== END 2023-01-26 14:00 | disposition home or self-care (01) ==
LOC: DI.S 13:59
DX: Z12.31 Encounter for screening mammogram for malignant neoplasm of breast (principal); R92.323 Mammographic fibroglandular density, bilateral breasts

== ENCOUNTER 2023-09-06 08:00 | Outpatient (CLI) | payer MEDICARE, OTHER ==
--- NOTE | 2023-09-07 20:47 | XRAY Report ---
PROCEDURE: Foot 3+V RT INDICATIONS: RIGHT FOOT CONTUSION TECHNIQUE: 3 views of the foot were acquired. COMPARISON: None. FINDINGS: Bones: No fractures or dislocations. Mild osteoarthritic changes are noted throughout right foot ofelia nts. Likely congenital fusion at the fifth ERP joint is seen. No suspicious bony lesions. Soft tissues: No tibiotalar joint effusion. Achilles tendon appears normal. IMPRESSION: No acute bony abnormality. Mild right foot osteoarthritis. Reviewed by: Madan Angeles MD on 09/07/2023 8:46 PM PDT Approved by: Madan Angeles MD on 09/07/2023 8:46 PM PDT Station ID: [id number]
== END 2023-09-06 23:59 | disposition home or self-care (01) ==
LOC: DI.S 08:00
PROVIDERS: ATTEND Registered Nurse
DX: M19.071 Primary osteoarthritis, right ankle and foot (principal)

== ENCOUNTER 2023-12-01 08:00 | Outpatient (CLI) | payer MEDICARE, OTHER ==
[2023-12-02 00:47] LABS: INFLUENZA A- RESP PCR PANEL NOT DETECTED; INFLUENZA B - RESP PCR PANEL NOT DETECTED; RSV- RESP PCR PANEL NOT DETECTED; SARS-CoV-2 -RESP PCR PANEL NOT DETECTED
== END 2023-12-01 23:59 | disposition home or self-care (01) ==
LOC: LAB.S 08:00
PROVIDERS: ATTEND Physician Assistant
DX: J06.9 Acute upper respiratory infection, unspecified (principal)
CPT/HCPCS: 87637

== ENCOUNTER 2023-12-20 08:00 | Outpatient (CLI) | payer MEDICARE, OTHER ==
--- NOTE | 2023-12-20 11:48 | XRAY Report ---
PROCEDURE: Foot 3+V LT INDICATIONS: LEFT FOOT SPRAIN TECHNIQUE: 3 views of the foot were acquired. COMPARISON: Right foot radiograph on September 06, 2023. FINDINGS: Metallic rings overlying the second toe limits evaluation. Bones: No fractures or dislocations. No suspicious bony lesions. Degenerative changes of the first metatarsal sesamoid bones. Soft tissues: No tibiotalar joint effusion. Achilles tendon appears normal. Tiny Achilles calcaneal enthesophyte. IMPRESSION: 1.No acute bony abnormality. If there is high clinical suspicion for a radiographically occult fractu re, recommend repeat imaging in 10-14 days versus cross-sectional imaging. 2.Please note prior right foot radiograph dated September 06, 2023 demonstrated an acute, minimally displac ed fracture at the medial base of the fifth proximal phalanx. Reviewed by: Orlando Moseley MD on 12/20/2023 10:47 AM [facility] Approved by: Orlando Moseley MD on 12/20/2023 10:47 AM [facility] Station ID: [id number]
== END 2023-12-20 23:59 | disposition home or self-care (01) ==
LOC: DI.S 08:00
PROVIDERS: ATTEND Physician Assistant Medical
DX: S93.692A Other sprain of left foot, initial encounter (principal)